=== PATIENT | female | born 1980 | race African-American/Black ===

== ENCOUNTER 2018-09-30 10:30 | Observation (INO) | payer MEDICAID ==
[~2018-09-30] VITALS: Ht 165.1 cm; Wt 137.3 kg
[~2018-09-30 10:30] MED LIST: MACROBID 1100 MG/CAP PO; NO HOME MEDICATIONS; PYRIDIUM200 M1 PO
--- NOTE | 2018-09-30 11:30 | NUR ---
PATIENT ADMITED INTO ROOM 322-2 VIA EMS FROM [facility] [facility] WITH [facility]ID[facility] STONES. PATIENT C/O SEVERE FLANK PAIN AND WAS GIVEN FENTANYL 100 DURING TRANSPORT. PATIENT REPORTS PAIN IS TOLERABLE AT THIS TIME WHEN SHE DOESN'T MOVE. PATIENT VOIDED A VERY SMALL AMOUNT SHORTLY AFTER ARRIVING. HEAD TO TOE ASSESSMENT WNL. ORIENTED TO ROOM. PATIENT C/O DISCOMFORT OF LEFT AC IV. DC'D YEIMI'S LEFT AC IV AND RESTARTED 20 GAUZE IV INTO RIGHT FORARM ON FIRST ATTEMPT. REVIEWEING NEW ORDERS.
[2018-09-30] MEDS ORDERED: SEROQUEL 200MG200 MG PO (11:31)
[2018-09-30] MEDS ORDERED: SEROQUEL300 MG PO (11:31)
[2018-09-30] MEDS ORDERED: TOPAMAX 100MG100 M1 PO (11:32)
[2018-09-30] MEDS ORDERED: XANAX 1MG1 MG PO (11:32)
[2018-09-30] MEDS ORDERED: MINIPRESS2 MG PO (11:33)
[2018-09-30] MEDS ORDERED: PRISTIQ 50 MG T50 MG PO (11:33)
[2018-09-30 12:00] VITALS: BP 118/65; PULSE 58; TEMP 97.8
--- NOTE | 2018-09-30 12:00 | NUR ---
MORPHINE BOXING TRAINER HOOKED UP FOR PAIN MANAGEMENT. TO REVIEW CT SCANS SENT FROM [place] [facility]LECT[facility]. AWAITING FURTHER ORDERS. PATIENT'S AT BEDSIDE. NO OTHER NEEDS AT THIS TIME. CALL LIGHT IN REACH.
[2018-09-30 12:05] VITALS: BP 118/65; PULSE 55; TEMP 97.8
[2018-09-30 17:33] VITALS: BP 115/56; PULSE 49; TEMP 97.5
[2018-09-30 21:19] VITALS: BP 117/64; PULSE 58; TEMP 97.5
--- NOTE | 2018-09-30 22:00 | NUR ---
Patient takes shower and returns to bed. Reconnected IVF and WOOD BORER Morphine. Reports pain 8/10 to left flank. Reminded patient about straining urine. IV site to right forearm without redness or swelling. Is alert and oriented x4, significant other Lecisha at bedside.
[2018-10-01] VITALS (14 sets, daily range): BP systolic 111–140; BP diastolic 44–83; PULSE 52–81; TEMP 97.7–98.3
--- NOTE | 2018-10-01 02:08 | NUR ---
Patient resting quietly, IVF infusing without problem.
--- NOTE | 2018-10-01 03:37 | NUR ---
Up to bathroom to void. Reports pain control with morphine FOOTWEAR SALES REPRESENTATIVE.
--- NOTE | 2018-10-01 06:00 | NUR ---
Has been NPO since midnight. Reports good pain control with LODGE SALES ASSOCIATE.
--- NOTE | 2018-10-01 08:30 | NUR ---
Patient in bed resting. Drows but arouses to voice and touch. Family at bedside. Patient states mild pain and nausea. Patient has CUSTOMER ENGAGEMENT REPRESENTATIVE infusing to right forarm. Denies further needs at this time. Assessment complete.
--- NOTE | 2018-10-01 10:08 | NUR ---
FRANCESCA met with the patient and the patient's best friend, Eve Willard, to discuss discharge plan. The patient lives in [place] with her two children. She states that they are fourteen and [id number] and that they are staying with family while she is here. She reports independence with ADLs and does not have any DME. The patient's primary care provider is Nat Collins, Nurse Practioner, at the [facility] in [place] and she receives her medications at the [facility]. She reports no difficulties obtaining her meds. The patient does not have advanced directives, but she was interested in obtaining a form for DPOA-HC. FRANCESCA provided. The patient plans to return home with her family upon discharge. No additional needs at this time.
--- NOTE | 2018-10-01 11:40 | NUR ---
First visit from the ruffling machine operator. No needs right now.
--- NOTE | 2018-10-01 16:10 | NUR ---
Patient up from OR. Drowsy but arouses to voice and touch. Family remains at bedside. Post op VS stable. Patient on 2l of O2, via NC. Denies further needs.
--- NOTE | 2018-10-01 18:17 | NUR ---
Patient has done well through this afternoon. Drowsy. Denies pain at this time. Post op fluids infusing via gravity. Denies further needs at this time. Encouraged patient to eat and drink. VSS. Will report off to shift production associate.
--- NOTE | 2018-10-01 19:15 | NUR ---
Patient in bed, trying to eat. Reports nausea and abdominal pain. Medicated with Percocet 1 tab at this time. IV site to right forearm without redness or swelling. Reports urinating x1 since surgery, reports "mostly blood". Reassured patient this was normal and urine should clear with each void. Patients friend went to drop off prescriptions for pain meds and Pyridium.
--- NOTE | 2018-10-01 20:00 | NUR ---
PATIENT ASKING TO TAKE A SHOWER BEFORE SHE LEAVES. DC'D IV SITE TO RIGHT FOREARM, ANGIOCATH INTACT.
--- NOTE | 2018-10-01 22:15 | NUR ---
PATIENT READY TO BE DISCHARGED. REVIEWED DISCHARGE INSTRUCTIONS WITH PATIENT AND S.O. QUESTIONS ANSWERED.
--- NOTE | 2018-10-01 22:20 | NUR ---
TAKEN VIA W/C TO PRIVATE CAR FOR DISCHARGE. PERSONAL BELONGINGS WITH PATIENT WELL COPY OF DISCHARGE INSTRUCTIONS.
== END 2018-10-01 22:20 | disposition home or self-care (01) ==
LOC: SURG 10:30
PROVIDERS: ADMIT Urology
DX: N13.1 Hydronephrosis with ureteral stricture, not elsewhere classified (principal); R31.9 Hematuria, unspecified; E66.01 Morbid (severe) obesity due to excess calories; Z68.43 Body mass index [BMI] 50.0-59.9, adult; Z79.899 Other long term (current) drug therapy; F17.210 Nicotine dependence, cigarettes, uncomplicated; F41.9 Anxiety disorder, unspecified; F32.9 Major depressive disorder, single episode, unspecified
CPT/HCPCS: C1769; C2617; G0378; G0379; J0690; J1100; J1170; J1885; J2270; J2405; J2704; J3010; J7030; Q9967

== ENCOUNTER → 2019-01-10 | Outpatient (CLI) | payer MEDICAID ==
[~2019-01-10] MED LIST changes: +MINIPRESS2 MG PO; +PRISTIQ 50 MG T50 MG PO; +SEROQUEL 200MG200 MG PO; +SEROQUEL300 MG PO; +TOPAMAX 100MG100 M1 PO; +XANAX 1MG1 MG PO
== END ==
LOC: COL.RAD 10:15
DX: R10.11 Right upper quadrant pain (principal)

== ENCOUNTER → 2019-01-16 | Outpatient (CLI) | payer MEDICAID | LOC: COL.RAD 08:02 | DX: N20.0 Calculus of kidney (principal); Z97.5 Presence of (intrauterine) contraceptive device | CPT/HCPCS: Q9967 ==

== ENCOUNTER → 2019-11-17 | Outpatient (CLI) | payer MEDICAID ==
[~2019-11-17] MED LIST changes: +ADIPEX-P37.5 MG PO
== END ==
LOC: COL.RAD 13:23
DX: N20.0 Calculus of kidney (principal); Z98.51 Tubal ligation status

== ENCOUNTER → 2021-06-08 | Outpatient (CLI) | payer MEDICAID | LOC: COL.RAD 12:40 | DX: R10.2 Pelvic and perineal pain (principal) ==